=== PATIENT | female | born 1975 | race Asian ===

== ENCOUNTER 2021-04-01 18:55 | Emergency (ER) | payer BC, OTHER ==
[~2021-04-01] VITALS: Ht 160 cm; Wt 68.9 kg
[2021-04-01 18:58] VITALS: BP 143/95
[2021-04-01] MEDS ORDERED: AMLO5TAB4 PO (19:02)
[2021-04-01] MEDS ORDERED: CYCL10TA9 PO (19:46)
[2021-04-01] MEDS ORDERED: NAPR-1192 PO (19:46)
== END 2021-04-01 22:08 | disposition home or self-care (01) ==
LOC: ER 19:01
DX: S16.1XXA Strain of muscle, fascia and tendon at neck level, initial encounter (principal); M62.838 Other muscle spasm; I10 Essential (primary) hypertension; Z79.899 Other long term (current) drug therapy; V49.49XA Driver injured in collision with other motor vehicles in traffic accident, initial encounter; Y93.89 Activity, other specified; Y92.413 State road as the place of occurrence of the external cause; Y99.8 Other external cause status